=== PATIENT | male | born 1930 | race Caucasian/White ===

== ENCOUNTER 2017-08-31 11:52 | Outpatient (CLI) | payer OTHER ==
[2017-08-31 12:20] LABS: BASOPHILS # (AUTO) 0.1 K/uL (0.0-0.2); BASOPHILS % (AUTO) 1.2 % (0.0-2.0); EOSINOPHILS # (AUTO) 0.2 K/uL (0.0-0.4); EOSINOPHILS % (AUTO) 4.1 % (0.0-4.0); HEMATOCRIT 37.8 % (36-54); HEMOGLOBIN 12.6 g/dL (14.0-18.0); LYMPHOCYTES # (AUTO) 1.3 K/uL (1.0-5.5); LYMPHOCYTES % (AUTO) 25.3 % (20.5-51.5); MEAN CORPUSCULAR HEMOGLOBIN 34 pg (27-31); MEAN CORPUSCULAR HGB CONC 33 % (32-36); MEAN CORPUSCULAR VOLUME 103 fL (79.0-98.0); MONOCYTES # (AUTO) 0.8 K/uL (0.0-1.0); MONOCYTES % (AUTO) 16.6 % (1.7-9.3); NEUTROPHILS # (AUTO) 2.7 K/uL (1.8-7.7); NEUTROPHILS % (AUTO) 52.8 % (40.0-70.0); PLATELET COUNT (AUTO) 178 K/uL (130-430); RED BLOOD CELL COUNT(AUTO) 3.67 MIL/uL (4.2-6.2); RED CELL DISTRIBUTION WIDTH 12.7 % (9.0-15.0); WHITE BLOOD COUNT (AUTO) 5.1 K/uL (4.8-10.8)
[2017-08-31 13:03] LABS: ALANINE AMINOTRANSFERASE 26 U/L (12-78); ANION GAP 6 (5-15); ASPARTATE AMINOTRANSFERASE 24 U/L (10-37); CALCIUM 9.2 mg/dL (8.4-11.0); CHLORIDE 96 mmol/L (98-107); CHOLESTEROL 158 mg/dL (<200); CREATININE 1.98 mg/dL (0.55-1.30); GLUCOSE 123 mg/dL (70-99); HDL CHOLESTEROL 44 mg/dL (>45); LDL CHOLESTEROL 98 mg/dL (<100); POTASSIUM 4.4 mmol/L (3.5-5.1); SODIUM SERUM 131 mmol/L (136-145); THYROID STIMULATING HORMONE 1.92 uIu/mL (0.34-4.82); TOTAL BILIRUBIN 0.8 mg/dL (0.0-1.0); TRIGLYCERIDES 63 mg/dL (30-150); UREA NITROGEN, BLOOD 27 mg/dL (8-21)
[2017-09-01 05:06] LABS: T4 (THYROXINE) 9.3 ug/dL (4.5-12.0)
[2017-09-02 13:27] LABS: PROSTATE SPECIFIC AG 5.1 ng/mL (0.0-4.0)
== END 2017-08-31 20:21 | disposition home or self-care (01) ==
LOC: SLB 11:52
DX: Z12.5 Encounter for screening for malignant neoplasm of prostate (principal); N19 Unspecified kidney failure; E78.5 Hyperlipidemia, unspecified; D64.9 Anemia, unspecified; E03.9 Hypothyroidism, unspecified; I50.9 Heart failure, unspecified; R53.1 Weakness
CPT/HCPCS: 36415; 36600; 80053; 80061; 82803-TC; 83735-TC; 84153; 84436; 84443-TC; 84480; 85025